=== PATIENT | male | born 1995 | race Caucasian/White ===

== ENCOUNTER 2019-04-26 08:27 | Emergency (ER) | payer OTHER ==
[~2019-04-26] VITALS: Ht 177.8 cm; Wt 68.0 kg
[2019-04-26] MEDS ORDERED: NOHOMEMEDICATIONS (08:45)
[2019-04-26 10:07] LABS: URINE BILIRUBIN NEGATIVE (Negative); URINE BLOOD NEGATIVE (Negative); URINE CLARITY CLEAR; URINE COLOR YELLOW; URINE GLUCOSE-RANDOM* NEGATIVE (Negative); URINE KETONES NEGATIVE (Negative); URINE LEUKOCYTES-REFLEX NEGATIVE (Negative); URINE NITRITE-REFLEX NEGATIVE (Negative); URINE PROTEIN (DIPSTICK) NEGATIVE (Negative); URINE UROBILINOGEN 0.2 E.U./dl (0.2-1.0)
[2019-04-26 10:18] LABS: AMP/METHAMP Negative (Negative); BARBITURATES Negative (Negative); BENZODIAZEPINES Negative (Negative); COCAINE Negative (Negative); METHADONE Negative (Negative); OPIATES Negative (Negative); PCP Negative (Negative)
[2019-04-26] MEDS ORDERED: HYDROXYZINE HCL25 M2 PO (10:58)
[2019-04-26] MEDS ORDERED: CARAFATE 1 GM TA1 G1 PO (10:58)
[2019-04-26] MEDS ORDERED: PEPCID40 MG PO (10:58)
[2019-04-26 11:13] VITALS: BP 124/82
--- NOTE | 2019-04-27 09:11 | EKG ---
[address] [address] ELECTROCARDIOGRAM REPORT Name: FREDIS ALVAREZ Room #: DEP Lyudmila#: [id number] Admission: 04/26/19 Attend Phys: Discharge: 04/26/19 Date of : 89 Report #: [id number] THIS REPORT FOR: //name// [facility] ED Test Date: 2019-04-26 Test Time: 09:59:10 Pat Name: FREDIS ALVAREZ Department: Room: Gender: Throat Cutter: BOB : 1995 Requested By: Trip Magdaleno Order Number: [id number] MD: Nolan Benedict Measurements Intervals Start Rate: 55 P: 26 UT: 138 QRS: 78 QRSD: 96 T: 54 QT: 416 QTc: 398 Interpretive Statements Sinus rhythm Early repolarization No previous ECG available for comparison Electronically Signed On 04-27-2019 9:11:41 CDT by Nolan Benedict [email or web address] <ELECTRONICALLY SIGNED> By: Nolan Benedict MD, [facility] 04/27/19 [id number] Nolan Benedict MD, FACC /EPI
== END 2019-04-26 11:22 | disposition home or self-care (01) ==
LOC: ER 08:27
PROVIDERS: Emergency Medicine
DX: R07.89 Other chest pain (principal); F17.210 Nicotine dependence, cigarettes, uncomplicated

== ENCOUNTER 2021-02-10 11:52 | Emergency (ER) | payer OTHER ==
[~2021-02-10] VITALS: Ht 177.8 cm; Wt 72.6 kg
[~2021-02-10 11:52] MED LIST: CARAFATE 1 GM TA1 G1 PO; HYDROXYZINE HCL25 M2 PO; NOHOMEMEDICATIONS; PEPCID40 MG PO
[2021-02-10 12:22] LABS: ABSOLUTE NEUTROPHILS 6.4 thou/uL (1.4-8.2); BASOPHILS 0.3 % (0.0-2.0); EOSINOPHILS 0.1 % (0.0-3.0); HEMATOCRIT 45.9 % (42.0-52.0); HEMOGLOBIN 15.6 gm/dL (14.0-18.0); LYMPHOCYTES 14.4 % (24.0-44.0); MCHC 34.1 g/dL (28.0-37.0); MCV 90.9 fL (80.0-100.0); PLATELET COUNT 267 thou/uL (150-400); POLYS 81.2 % (36.0-66.0); RBC 5.04 mil/uL (4.50-6.00); RDW 13.1 % (10.5-14.5); WBC 7.9 thou/uL (4.0-11.0)
[2021-02-10 12:31] LABS: CALCIUM 9.4 mg/dL (8.5-10.1); CREATININE 0.9 mg/dL (0.7-1.3); POTASSIUM 3.9 mmol/L (3.5-5.1)
[2021-02-10 12:36] LABS: TOTAL BILIRUBIN 2.9 mg/dL (0.2-1.0); TOTAL PROTEIN 7.8 g/dL (6.4-8.2)
[2021-02-10 12:42] LABS: URINE BILIRUBIN NEGATIVE (Negative); URINE BLOOD NEGATIVE (Negative); URINE CLARITY CLEAR; URINE COLOR YELLOW; URINE GLUCOSE-RANDOM* NEGATIVE (Negative); URINE KETONES 2+ (Negative); URINE LEUKOCYTES-REFLEX NEGATIVE (Negative); URINE NITRITE-REFLEX NEGATIVE (Negative); URINE PROTEIN (DIPSTICK) NEGATIVE (Negative); URINE SPECIFIC GRAVITY 1.025 (1.005-1.035)
[2021-02-10 13:44] LABS: AMP/METHAMP Negative (Negative); BARBITURATES Negative (Negative); BENZODIAZEPINES Negative (Negative); COCAINE Negative (Negative); METHADONE Negative (Negative); OPIATES Negative (Negative); PCP Negative (Negative)
[2021-02-10 14:31] VITALS: BP 123/64
[2021-02-10] MEDS ORDERED: ONDANSETRON HCL4 M2 PO (14:31)
[2021-02-10] MEDS ORDERED: VISTARIL 25 MG25 M1 PO (14:31)
== END 2021-02-10 14:46 | disposition home or self-care (01) ==
LOC: ER 11:52
PROVIDERS: Emergency Medicine; Nurse Practitioner
DX: F41.9 Anxiety disorder, unspecified (principal); F17.210 Nicotine dependence, cigarettes, uncomplicated; Z20.822 Contact with and (suspected) exposure to COVID-19; Z87.891 Personal history of nicotine dependence